=== PATIENT | female | born 1980 | race Two or more races ===

== ENCOUNTER 2017-08-04 12:04 | Outpatient (CLI) | payer OTHER | END 2017-08-04 12:05 | disposition home or self-care (01) | LOC: RAD 12:04 | DX: R05 Cough (principal) ==

== ENCOUNTER → 2017-08-04 | Outpatient (CLI) | payer OTHER ==
[~2017-08-04] MED LIST: GILTUSS TR TAB1 EACH PO; PAXIL30 MG PO; SYNTHROID88 MCG; SYNTHROID88 MCG PO; TESSALON PERLE100 MG PO; ZYRTEC10 MG PO
== END | disposition home or self-care (01) ==
LOC: PPHC 10:45
DX: J06.9 Acute upper respiratory infection, unspecified (principal)

== ENCOUNTER 2018-02-12 07:47 | Outpatient (CLI) | payer OTHER | END 2018-02-12 08:04 | disposition home or self-care (01) | LOC: LAB 07:47 | DX: R53.1 Weakness (principal) ==

== ENCOUNTER 2018-05-28 09:05 | Outpatient (CLI) | payer OTHER | END 2018-05-28 09:57 | disposition home or self-care (01) | LOC: LAB 09:05 | DX: E55.9 Vitamin D deficiency, unspecified (principal); I10 Essential (primary) hypertension; E78.49 Other hyperlipidemia; R42 Dizziness and giddiness ==

== ENCOUNTER 2018-06-08 15:48 | Emergency (ER) | payer OTHER ==
[~2018-06-08] VITALS: Ht 154.9 cm; Wt 148.8 kg
== END 2018-06-08 17:53 | disposition home or self-care (01) ==
LOC: ER 15:48
DX: N93.8 Other specified abnormal uterine and vaginal bleeding (principal)

== ENCOUNTER 2018-06-25 10:31 | Outpatient (CLI) | payer OTHER | END 2018-06-25 10:38 | disposition home or self-care (01) | LOC: SONOGRAMA 10:31 → MAMO-SONO 10:45 | DX: N92.0 Excessive and frequent menstruation with regular cycle (principal) ==

== ENCOUNTER 2018-11-29 16:40 | Outpatient (CLI) | payer OTHER | END 2018-11-29 16:51 | disposition home or self-care (01) | LOC: LAB 16:40 | DX: J11.1 Influenza due to unidentified influenza virus with other respiratory manifestations (principal) ==

== ENCOUNTER 2019-07-06 10:45 | Emergency (ER) | payer OTHER ==
[~2019-07-06] VITALS: Ht 157.5 cm; Wt 157.9 kg
== END 2019-07-06 14:54 | disposition home or self-care (01) ==
LOC: ER 10:45
DX: F43.8 Other reactions to severe stress (principal); Z56.3 Stressful work schedule; F06.4 Anxiety disorder due to known physiological condition

== ENCOUNTER → 2019-12-06 | Emergency (ER) | payer OTHER ==
[~2019-12-06] VITALS: Ht 157.5 cm; Wt 158.8 kg
== END | disposition left against medical advice (07) ==
LOC: ER 20:21
DX: Z53.20 Procedure and treatment not carried out because of patient's decision for unspecified reasons (principal)

== ENCOUNTER 2020-01-09 08:00 | Outpatient (CLI) | payer OTHER | END 2020-01-09 15:00 | disposition home or self-care (01) | LOC: PPH VACUNA 08:00 | DX: Z23 Encounter for immunization (principal) ==

== ENCOUNTER → 2020-03-09 09:25 | Outpatient (CLI) | payer OTHER | END | disposition home or self-care (01) | LOC: LAB 09:25 | PROVIDERS: ATTEND Psychiatry & Neurology Psychiatry | DX: D64.89 Other specified anemias (principal); E11.9 Type 2 diabetes mellitus without complications; E03.8 Other specified hypothyroidism; E78.49 Other hyperlipidemia; N39.0 Urinary tract infection, site not specified ==

== ENCOUNTER 2020-03-28 06:16 | Outpatient (CLI) | payer OTHER | END 2020-03-28 06:22 | disposition home or self-care (01) | LOC: LAB 06:16 | DX: E03.8 Other specified hypothyroidism (principal) ==

== ENCOUNTER 2021-02-14 08:33 | Outpatient (CLI) | payer OTHER | END 2021-02-14 08:35 | disposition home or self-care (01) | LOC: PPH VACUNA 08:33 | PROVIDERS: ATTEND Emergency Medicine Pediatric Emergency Medicine | DX: Z23 Encounter for immunization (principal) ==

== ENCOUNTER 2021-03-06 09:00 | Outpatient (CLI) | payer OTHER | END 2021-03-06 09:30 | disposition home or self-care (01) | LOC: PPH VACUNA 09:00 | PROVIDERS: ATTEND Emergency Medicine Pediatric Emergency Medicine | DX: Z23 Encounter for immunization (principal) ==

== ENCOUNTER 2021-06-10 12:50 | Outpatient (CLI) | payer OTHER | END 2021-06-10 12:58 | disposition home or self-care (01) | LOC: MAMO-SONO 12:50 | PROVIDERS: ATTEND Internal Medicine Cardiovascular Disease | DX: N63.11 Unspecified lump in the right breast, upper outer quadrant (principal) ==

== ENCOUNTER → 2021-06-13 06:28 | Outpatient (CLI) | payer OTHER | END | disposition home or self-care (01) | LOC: LAB 06:28 | PROVIDERS: ATTEND Internal Medicine Cardiovascular Disease | DX: I10 Essential (primary) hypertension (principal); E11.9 Type 2 diabetes mellitus without complications; E03.9 Hypothyroidism, unspecified; E78.2 Mixed hyperlipidemia; E55.9 Vitamin D deficiency, unspecified ==

== ENCOUNTER 2021-12-24 13:57 | Outpatient (CLI) | payer OTHER | END 2021-12-24 14:02 | disposition home or self-care (01) | LOC: PPH VACUNA 13:57 | PROVIDERS: ATTEND Emergency Medicine Pediatric Emergency Medicine | DX: Z23 Encounter for immunization (principal) ==

== ENCOUNTER 2022-03-17 11:18 | Outpatient (CLI) | payer OTHER | END 2022-03-17 11:25 | disposition home or self-care (01) | LOC: TOM 11:18 | PROVIDERS: ATTEND Psychiatry & Neurology Neurology | DX: R41.3 Other amnesia (principal); R40.4 Transient alteration of awareness; R56.9 Unspecified convulsions; G47.33 Obstructive sleep apnea (adult) (pediatric) ==

== ENCOUNTER 2022-03-30 13:29 | Emergency (ER) | payer OTHER ==
[~2022-03-30] VITALS: Ht 157.5 cm; Wt 158.8 kg
== END 2022-03-30 18:49 | disposition home or self-care (01) ==
LOC: ER 13:29
DX: J06.9 Acute upper respiratory infection, unspecified (principal); B34.9 Viral infection, unspecified; Z88.0 Allergy status to penicillin; Z20.822 Contact with and (suspected) exposure to COVID-19

== ENCOUNTER 2022-10-31 08:42 | Outpatient (CLI) | payer OTHER | END 2022-10-31 08:44 | disposition home or self-care (01) | LOC: LAB 08:42 | PROVIDERS: ATTEND Psychiatry & Neurology Psychiatry | DX: D64.9 Anemia, unspecified (principal); E11.9 Type 2 diabetes mellitus without complications; E03.9 Hypothyroidism, unspecified; E78.5 Hyperlipidemia, unspecified; N39.0 Urinary tract infection, site not specified ==

== ENCOUNTER 2023-01-15 13:37 | Outpatient (CLI) | payer OTHER | END 2023-01-15 13:47 | disposition home or self-care (01) | LOC: PPH VACUNA 13:37 | PROVIDERS: ATTEND Emergency Medicine Pediatric Emergency Medicine | DX: Z23 Encounter for immunization (principal) | CPT/HCPCS: 90686; G0008 ==

== ENCOUNTER 2023-07-07 10:57 | Emergency (ER) | payer OTHER ==
[~2023-07-07] VITALS: Ht 160 cm; Wt 145.1 kg
== END 2023-07-07 12:17 | disposition home or self-care (01) ==
LOC: ER 10:57
DX: H10.89 Other conjunctivitis (principal); Z88.0 Allergy status to penicillin

== ENCOUNTER 2023-07-30 06:08 | Outpatient (CLI) | payer OTHER ==
[2023-07-30 07:16] LABS: PH,URINE 6.5 (5.0-8.0); URINE APPEARANCE Clear; URINE BILIRRUBIN Negative (NEGATIVE); URINE BLOOD Negative; URINE COLOR Dark Yellow; URINE GLUCOSE Negative (NEGATIVE); URINE LEUKOCYTE Trace; URINE NITRATE Negative; URINE PROTEIN Negative (NEGATIVE); URINE UROBILINOGEN 0.2 E.U./dl
[2023-07-30 07:17] LABS: URINE BACTERIA 1373.3 uL (0.0-1933); URINE EPITHELIAL CELLS 22.5 uL (0.0-38.8); URINE RBC 8.7 uL (0.0-20.8)
[2023-07-30 07:35] LABS: HEMATOCRIT 34.8 % (36.0-45.00); HEMOGLOBIN 11.5 g/dL (12.0-15.00); MEAN CELL VOLUME 91.6 fL (80.00-100.00); MEAN CORPUSCULAR HEMOGLOBIN 30.4 pg (27.00-32.0); MEAN CORPUSCULAR HGB CONC 33.2 g/dl (32.0-36.0); PLATELET COUNT 268 K/uL (150-450); RED CELL DISTRIBUTION WIDTH 13.2 % (11.5-14.5)
[2023-07-30 08:25] LABS: ALKALINE PHOSPHATASE 74 U/L (50-136); ALT/SGPT 16 U/L (12-78); ANION GAP 7 (10.0-20.0); AST/SGOT 8 U/L (15-37); BILIRUBIN TOTAL 0.31 mg/dL (0.3-1.2); BILIRUBIN,CONJUGATED < 0.10 mg/dL (0.0-0.2); BILIRUBIN,UNCONJUGATED 0.21 mg/dL (0.0-0.6); BLOOD UREA NITROGEN 12 mg/dL (7-18); BUN CREA RATIO 15 (7.0-25.0); CALCIUM 8.8 mg/dL (8.5-10.1); CARBON DIOXIDE 30 mEq/L (21-32); CHLORIDE 112 mmol/L (98-107); CHOL HDL RATIO 3.1 (0-5.0); CHOLESTEROL 161 mg/dL (0-200); CREATININE SERUM 0.79 mg/dL (0.55-1.02); GFR 79.43; GLOBULINA 4.1 G/DL (2.4-3.5); GLUCOSE FASTING 87 mg/dL (65-100); HDL 52 mg/dl (40-60); LDL 90 mg/dl (0-130); OSMOLALITY SERUM 286 MOSM/KG (275-295); POTASSIUM 4.66 mEq/L (3.5-5.1); SODIUM 144 mmol/L (136-145); T3 UPTAKE 30 % (30-39); T4 TOTAL 10.17 UG/DL (4.8-13.9); TOTAL PROTEIN 7.1 gm/dL (6.4-8.2); TRIGLYCERIDES 97 mg/dL (0-150); VLDL 19 (0-39)
[2023-07-30 11:04] LABS: T3 TOTAL 1.67 ng/ml (0.846-2.02); VITAMIN D3 25 HYDROXY 21.97 ng/ml (30-120)
== END 2023-07-30 06:15 | disposition home or self-care (01) ==
LOC: LAB 06:08
PROVIDERS: ATTEND General Practice
DX: Z00.00 Encounter for general adult medical examination without abnormal findings (principal); E78.5 Hyperlipidemia, unspecified; E55.9 Vitamin D deficiency, unspecified; N39.0 Urinary tract infection, site not specified; R42 Dizziness and giddiness; R10.9 Unspecified abdominal pain

== ENCOUNTER 2024-03-08 12:49 | Outpatient (CLI) | payer OTHER ==
[2024-03-08 14:23] LABS: HEMOGLOBIN 12.2 g/dL (12.0-15.00); MEAN CELL VOLUME 91.1 fL (80.00-100.00); MEAN CORPUSCULAR HEMOGLOBIN 30.9 pg (27.00-32.0); MEAN CORPUSCULAR HGB CONC 33.9 g/dl (32.0-36.0); PLATELET COUNT 327 K/uL (150-450); RED BLOOD COUNT 3.95 M/uL (4.00-6.00); RED CELL DISTRIBUTION WIDTH 13.4 % (11.5-14.5)
== END 2024-03-08 12:50 | disposition home or self-care (01) ==
LOC: LAB 12:49
PROVIDERS: ATTEND Obstetrics & Gynecology Gynecology
DX: N92.1 Excessive and frequent menstruation with irregular cycle (principal)

== ENCOUNTER 2024-03-10 07:30 | Outpatient (CLI) | payer OTHER | END 2024-03-10 07:36 | disposition home or self-care (01) | LOC: SONOGRAMA 07:30 | PROVIDERS: ATTEND Obstetrics & Gynecology Gynecology | DX: R10.2 Pelvic and perineal pain (principal) ==

== ENCOUNTER 2024-05-05 10:18 | Outpatient (CLI) | payer OTHER | END 2024-05-05 10:27 | disposition home or self-care (01) | LOC: MAMO-SONO 10:18 | PROVIDERS: ATTEND Obstetrics & Gynecology Gynecology | DX: N60.11 Diffuse cystic mastopathy of right breast (principal); N60.12 Diffuse cystic mastopathy of left breast; Z12.31 Encounter for screening mammogram for malignant neoplasm of breast ==

== ENCOUNTER 2024-07-13 14:10 | Outpatient (CLI) | payer OTHER | END 2024-07-13 14:15 | disposition home or self-care (01) | LOC: RAD 14:10 | PROVIDERS: ATTEND Obstetrics & Gynecology Gynecology | DX: I10 Essential (primary) hypertension (principal) ==

== ENCOUNTER 2024-07-14 07:02 | Outpatient (CLI) | payer OTHER ==
[2024-07-14 07:42] LABS: HEMATOCRIT 34.1 % (36.0-45.00); HEMOGLOBIN 11.5 g/dL (12.0-15.00); MEAN CELL VOLUME 90.8 fL (80.00-100.00); MEAN CORPUSCULAR HEMOGLOBIN 30.8 pg (27.00-32.0); MEAN CORPUSCULAR HGB CONC 33.9 g/dl (32.0-36.0); PLATELET COUNT 285 K/uL (150-450); RED BLOOD COUNT 3.75 M/uL (4.00-6.00); RED CELL DISTRIBUTION WIDTH 13.7 % (11.5-14.5)
[2024-07-14 07:53] LABS: URINE APPEARANCE Clear; URINE BILIRRUBIN Negative (NEGATIVE); URINE BLOOD Negative; URINE COLOR Yellow; URINE GLUCOSE Negative (NEGATIVE); URINE KETONE Trace (NEGATIVE); URINE LEUKOCYTE Trace; URINE NITRATE Negative; URINE PROTEIN Negative (NEGATIVE); URINE UROBILINOGEN 0.2 E.U./dl
[2024-07-14 07:54] LABS: URINE BACTERIA 2368.3 uL (0.0-1933); URINE EPITHELIAL CELLS 14.7 uL (0.0-38.8); URINE RBC 21.6 uL (0.0-20.8); URINE WBC 18.5 uL (0.0-23.2)
[2024-07-14 08:06] LABS: INR 0.95; PARTIAL THROMBOPLASTIN TIME 26.8 SECONDS (22.0-34.0); PROTHROMBIN TIME 10.4 SECONDS (9.0-11.5)
[2024-07-14 08:10] LABS: ALBUMIN 2.9 gm/dL (3.4-5.0); BILIRUBIN TOTAL 0.31 mg/dL (0.3-1.2); CALCIUM 8.7 mg/dL (8.5-10.1); CREATININE SERUM 0.69 mg/dL (0.55-1.02); GFR 92.42; GLOBULINA 4.1 G/DL (2.4-3.5); POTASSIUM 4.14 mEq/L (3.5-5.1)
[2024-07-14 08:27] LABS: URINE CAST 0.88 uL (0.0-1.40)
== END 2024-07-14 07:06 | disposition home or self-care (01) ==
LOC: LAB 07:02
PROVIDERS: ATTEND Obstetrics & Gynecology Gynecology
DX: D64.9 Anemia, unspecified (principal); N39.0 Urinary tract infection, site not specified; I10 Essential (primary) hypertension

== ENCOUNTER → 2024-07-28 08:40 | Outpatient (CLI) | payer OTHER ==
[~2024-07-28 08:40] MED LIST changes: +ALLEGRA ALLERG180 MG PO; +IBU600 MG PO; +PAXIL40 MG PO
== END | disposition home or self-care (01) ==
LOC: LAB 08:40
PROVIDERS: ATTEND Internal Medicine
DX: Z01.810 Encounter for preprocedural cardiovascular examination (principal)

== ENCOUNTER 2024-07-31 05:50 | Day surgery (SDC) | payer OTHER ==
[2024-07-25 08:47] VITALS: BP 131/66
[~2024-07-31] VITALS: Ht 154.9 cm; Wt 145.1 kg
[~2024-07-31 05:50] MED LIST changes: -IBU600 MG PO
[2024-07-31] MEDS ORDERED: POVIDONE-IODINE 118 ML BOTT TOP ONE (09:23)
[2024-07-31] MEDS ORDERED: IBU600 MG PO (10:25)
== END 2024-07-31 14:10 | disposition home or self-care (01) ==
LOC: CIR.AMB 05:50
PROVIDERS: ATTEND Obstetrics & Gynecology Gynecology
DX: N84.0 Polyp of corpus uteri (principal); N72 Inflammatory disease of cervix uteri; N92.1 Excessive and frequent menstruation with irregular cycle; Z88.0 Allergy status to penicillin; E03.8 Other specified hypothyroidism; F41.9 Anxiety disorder, unspecified

== ENCOUNTER 2024-10-09 09:04 | Outpatient (CLI) | payer OTHER ==
[~2024-10-09 09:04] MED LIST changes: +IBU600 MG PO
[2024-10-11 07:11] LABS: HEPATITIS A ANTIBODY IGG Negative (Negative); HEPATITIS B SURFACE ANTIBODY Non Reactive (.); HEPATITIS C VIRUS ANTIBODY Non Reactive (Non Reactive)
== END 2024-10-09 09:11 | disposition home or self-care (01) ==
LOC: LAB 09:04
DX: A64 Unspecified sexually transmitted disease (principal); B19.9 Unspecified viral hepatitis without hepatic coma